=== PATIENT | female | born 1980 | race African-American/Black ===

== ENCOUNTER 2017-08-13 08:43 | Emergency (ER) | payer MEDICAID ==
[~2017-08-13] VITALS: Ht 172.7 cm; Wt 97.0 kg
[2017-08-13 08:52] VITALS: BP 148/77; PULSE 78; RESP 16; TEMP 98.4; O2SAT 100
[2017-08-13] MEDS ORDERED: PROPARACAINE HCL 0.5% OPHT SOLN 15 ML BTL EACH EYE ONE (09:30)
[2017-08-13] MEDS ORDERED: ERYTOIN10 EACH EYE (09:51)
--- NOTE | 2017-08-13 09:52 | PD ---
HPI Chief Complaint: Eye Problems/Injury Time Seen by Provider: 09:24 Travel History International Travel<30 days: No Contact w/Intl Traveler<30days: No Traveled to known affect area: No History of Present Illness HPI 37-year-old female here with bilateral eye irritation and redness 1 week. Patient reports she recently changed her false eyelashes adhesive and the irritation began after that. She reports clear drainage from the eyes with crusting at eyelashes. She denies any visual changes. She denies eye pain. Symptom severity is moderate. No alleviating factors. PFSH Past Medical History Medical History: Denies Significant Hx Diminished Hearing: No Tetanus Vaccination: Unknown ?: Not LMP: 3 WEEKS AGO Past Surgical History Surgical History: No Previous Surgery Social History Alcohol Use: Yes (SOC) Tobacco Use: No Substance Use: No Allergies-Medications (Allergen,Severity, Reaction): Coded Allergies: No Known Allergies (Unverified , 08/13/17) Reported Meds & Prescriptions Reported Meds & Active Scripts Active No Active Prescriptions or Reported Medications Review of Systems Except as stated in HPI: all other systems reviewed are Neg Physical Exam Narrative GENERAL: Alert well-appearing female no acute distress SKIN: Warm and dry. HEAD: Normocephalic. EYES: No scleral icterus. Mild/Moderate injection bilaterally. Clear drainage. Pupils are equal and reactive. EOMs intact. Visual acuity 20/20. No fluorescein dye uptake. NECK: Supple, trachea midline. No JVD or lymphadenopathy. CARDIOVASCULAR: Regular rate and rhythm without murmurs, gallops, or rubs. RESPIRATORY: Breath sounds equal bilaterally. No accessory muscle use. Data Data Last Documented VS Vital Signs Date Time Temp Pulse Resp B/P (MAP) Pulse Ox O2 Delivery O2 Flow Rate FiO2 08/13/17 08:52 98.4 78 16 148/77 (100) 100 Orders Orders Proparacaine 0.5% Opth Soln (Alcaine 0.5 (08/13/17 09:30) MDM Medical Decision Making Medical Screen Exam Complete: Yes Emergency Medical Condition: Yes Differential Diagnosis Bacterial conjunctivitis, allergic conjunctivitis, corneal abrasion, corneal ulcer Narrative Course 37-year-old female here with bilateral eye irritation and redness 1 week. Patient reports she recently changed her false eyelashes adhesive and the irritation began after that. She reports clear drainage from the eyes with crusting at eyelashes. She denies any visual changes. She denies eye pain. On exam she has mild bilateral eye injection there is no fluorescein dye uptake. Patient will be treated for conjunctivitis likely caused by the glue for her last adhesives. She was instructed to discontinue use. Follow up with ophthalmology or PCP. Diagnosis Primary Impression: Conjunctivitis Qualified Codes: H10.33 - Unspecified acute conjunctivitis, bilateral Referrals: Primary Care Physician Additional Instructions: Use the antibiotic ointment as directed. Discontinue the use of false eyelashes until symptoms completely resolved. I recommend discontinuing the use of the eyelash adhesive which caused this discomfort. Follow-up with her primary doctor or tourist home keeper. Return to emergency department if he developed new or worsening symptoms Scripts Erythromycin Opth Oint (Erythromycin Opth Oint) 5 Mg/Gm Oint 1 APPLIC EACH EYE BID for Infection, #1 TUBE 0 Refills Prov: Marla Barnes 08/13/17 Disposition: 01 DISCHARGE HOME Condition: Stable Marla Barnes Aug 13, 2017 09:52
== END 2017-08-13 09:57 | disposition home or self-care (01) ==
LOC: PHED 08:43 → PHEFT 09:57
DX: H10.33 Unspecified acute conjunctivitis, bilateral (principal)
CPT/HCPCS: 99283